=== PATIENT | male | born 1975 | race Caucasian/White ===

== ENCOUNTER 2021-02-16 14:32 | Emergency (ER) | payer OTHER ==
[~2021-02-16] VITALS: Ht 172.7 cm; Wt 95.5 kg
[2021-02-16] MEDS ORDERED: NORCO 325 MG-51 TAB PO (15:44)
[2021-02-16 16:00] VITALS: BP 138/64; PULSE 78; TEMP 97.5
== END 2021-02-16 16:04 | disposition home or self-care (01) ==
LOC: COL.ER 14:32
DX: S83.92XA Sprain of unspecified site of left knee, initial encounter (principal); R22.42 Localized swelling, mass and lump, left lower limb; I10 Essential (primary) hypertension; X58.XXXA Exposure to other specified factors, initial encounter

== ENCOUNTER 2022-02-13 19:34 | Emergency (ER) | payer OTHER ==
[~2022-02-13] VITALS: Ht 172.7 cm; Wt 90.9 kg
[~2022-02-13 19:34] MED LIST: NORCO 325 MG-51 TAB PO
[2022-02-13 19:37] VITALS: TEMP 98.9
[2022-02-13 20:38] LABS: BASO % 0.4 % (0.0-2.0); EOS % 0.1 % (0.0-4.0); GRAN # 9.5 K/mm3 (1.4-6.5); GRAN % 88.7 % (42.2-75.2); HEMATOCRIT 40.7 % (42.0-52.0); HEMOGLOBIN 13.7 g/dl (13.5-18.0); LYMPH # 0.6 K/mm3 (1.2-3.4); LYMPH % 5.7 % (20.0-51.0); MEAN CELL VOLUME 87 fl (80.0-100.0); MEAN CORPUSCULAR HEMOGLOBIN 29 pg (27-31); MEAN CORPUSCULAR HGB CONC 34 g/dl (33.0-37.0); MEAN PLATELET VOLUME 9.5 fl (7.4-10.4); MONO # 0.5 K/mm3 (0.1-0.6); MONO % 4.6 % (1.7-9.3); PLATELET COUNT 188 K/mm3 (130-400); REDCELL DISTRIBUTION WIDTH-CV 12.8 % (11.5-14.5)
[2022-02-13 20:52] LABS: ALBUMIN 3.4 gm/dL (3.5-5.0); BILIRUBIN,TOTAL 0.5 mg/dL (0.2-1.2); CALCIUM 8.9 mg/dL (8.4-10.2); CREATININE, serum 1.61 mg/dL (0.72-1.25); POTASSIUM 4.3 mmol/L (3.5-4.5); TOTAL PROTEIN 6.8 gm/dL (6.2-8.1)
[2022-02-13 22:37] VITALS: BP 124/80; PULSE 80
[2022-02-13] MEDS ORDERED: PERCOCET 325 MG1 TA2 PO (23:19)
== END 2022-02-13 22:37 | disposition home or self-care (01) ==
LOC: COL.ER 19:34
PROVIDERS: Nurse Practitioner
DX: M76.61 Achilles tendinitis, right leg (principal)
CPT/HCPCS: J2270; J2405; J3010; J7030

== ENCOUNTER 2022-11-08 17:59 | Inpatient (IN) | payer OTHER ==
[~2022-11-08] VITALS: Ht 172.7 cm; Wt 92.8 kg
[~2022-11-08 17:59] MED LIST changes: +PERCOCET 325 MG1 TA2 PO
[2022-11-08] MEDS ORDERED: ZESTRIL40 MG PO (19:58)
[2022-11-08] MEDS ORDERED: CELEBREX400 MG PO (19:58)
[2022-11-08] MEDS ORDERED: NEURONTIN300 MG/CAP PO (19:58)
[2022-11-08] MEDS ORDERED: ZITHROMAX Z PA250 MG PO (19:59)
[2022-11-08] MEDS ORDERED: GOOD SENSE TUS120 ML PO (20:05)
[2022-11-08 20:25] VITALS: BP 101/74; PULSE 88; TEMP 97.8
[2022-11-08] MEDS ORDERED: AMBIEN 10MG10 MG PO (22:05)
[2022-11-08] MEDS ORDERED: PROTONIX 40MG T40 MG PO (22:06)
[2022-11-08] MEDS ORDERED: MUCINEX DM 60 M1 TER PO (22:09)
[2022-11-08 22:33] LABS: BASO # 0.1 K/mm3 (0.0-0.2); BASO % 0.5 % (0.0-2.0); EOS # 0.1 K/mm3 (0.0-0.7); EOS % 0.8 % (0.0-4.0); GRAN # 11.9 K/mm3 (1.4-6.5); HEMATOCRIT 39.5 % (42.0-52.0); HEMOGLOBIN 13.4 g/dl (13.5-18.0); LYMPH # 1.3 K/mm3 (1.2-3.4); LYMPH % 8.7 % (20.0-51.0); MEAN CELL VOLUME 88 fl (80.0-100.0); MEAN CORPUSCULAR HEMOGLOBIN 30 pg (27-31); MEAN CORPUSCULAR HGB CONC 34 g/dl (33.0-37.0); MEAN PLATELET VOLUME 9.6 fl (7.4-10.4); MONO % 6.7 % (1.7-9.3); PLATELET COUNT 239 K/mm3 (130-400); RED BLOOD COUNT 4.51 M/mm3 (4.20-5.60); REDCELL DISTRIBUTION WIDTH-CV 12.5 % (11.5-14.5)
[2022-11-08 22:56] LABS: BILIRUBIN,TOTAL 0.3 mg/dL (0.2-1.2); C-REACTIVE PROTEIN 11.57 mg/dL (0.00-0.50); CALCIUM 9.1 mg/dL (8.4-10.2); CREATININE, serum 2.17 mg/dL (0.72-1.25); POTASSIUM 5.3 mmol/L (3.5-4.5); TOTAL PROTEIN 6.8 gm/dL (6.2-8.1)
[2022-11-08 23:23] VITALS: BP 118/68; PULSE 75; TEMP 98.2
[2022-11-09] VITALS (13 sets, daily range): BP systolic 108–145; BP diastolic 66–96; PULSE 77–107; TEMP 98.2–100.9
--- NOTE | 2022-11-09 01:16 | NUR ---
Patient arrived to surgical unit around 1949, direct admission. Notified JOSE Ma. Reports pain to right knee, sweling and redness to area. Given extra pillows for support and elevation due to decreased ROM to knee. Peripheral IV started to right forearm. Started IV fluids per orders, as well as ABX. Given PRN Phenergan as requested prior to ABX due to history of having nausea with Vancomycin. Given PRN pain medications as requested. Covid/Inf/RSV all negative. Patient does have dry cough. Patient's potassium elevated. Given IV insulin and dextrose per orders. Patient voices no questions, needs, or concerns at this time. In bed with call light within reach.
[2022-11-09 04:36] LABS: CALCIUM 8.7 mg/dL (8.4-10.2); CREATININE, serum 1.8 mg/dL (0.72-1.25); POTASSIUM 4.6 mmol/L (3.5-4.5)
--- NOTE | 2022-11-09 06:04 | NUR ---
47 yo male admitted for further care and management of R knee pain with possible sepsis (?septic arthritis). ht 172.7 cm wt 92.8 kg SCr 1.8 with estimated CrCl ~50 ml/min half life 19.5 hours Plan: Patient received an initial loading dose of vancomycin 2000 mg x1 in the ED (21.6 mg/kg); will follow with a maintenance regimen of vancomycin 1500 mg q24h to target a goal trough of 15-20 mcg/ml. Will follow patient's renal function, micro data, and vancomycin levels as indicated to assess for any necessary changes to regimen. Thank you for this dosing consult.
--- NOTE | 2022-11-09 06:22 | NUR ---
Patient given PRN pain medication during the night as requested to right knee pain. Left foot with increased swelling and pain this morning as well. Denied wanting ice to sites. Pre op fluids hung. Consent for surgery and anesthesia signed and on the chart. remains at bedside. Voices no questions, needs, or concerns at this time. In bed with call light within reach. Voided 1200 mls of urine at 0600.
[2022-11-09 06:45] LABS: SQUAMOUS EPITHELIAL 0-2 /hpf (0-10); URINE BACTERIA None Seen /hpf (NONE SEEN)
[2022-11-09 06:47] LABS: COLLECTION METHOD CLEAN CATCH; URINE APPEARANCE Clear (CLEAR/HAZY); URINE COLOR Yellow (YELLOW); URINE GLUCOSE Negative (NEGATIVE); URINE PROTEIN(semi-quant) 2+ (NEGATIVE)
[2022-11-09 06:48] LABS: URINE BLOOD 1+ (NEGATIVE); URINE KETONE Negative (NEGATIVE); URINE NITRATE Negative (NEGATIVE); URINE UROBILINOGEN 0.2 E.U/dL (0.2-1.0)
--- NOTE | 2022-11-09 10:00 | NUR ---
Pt. returned from surgery. Dressing to rt. knee CDI. Shift assessment complete. IV to rt. forearm patent. Pt. reports pain at a 8 on pain scale, giving pain meds per orders. Pt. denies further needs, call light within reach.
[2022-11-09 12:47] LABS: PHOSPHOROUS 4.4 mg/dL (2.3-4.7); URIC ACID 10.4 mg/dL (3.5-7.2)
--- NOTE | 2022-11-09 14:48 | NUR ---
SW met with patient to complete intake. Patient states that he lives in [facility] with his Fallon Mukherjee [phone]. Patient provides he does not utilize DME, is independent with ADLs, and does not utilize HH services at this time. PCP is Dr. Londono, and pharmacy [facility]. Patient does not have anyone appointed as DPOA/HC. Patient states he plans to return to his home upon DC. SW will continue to follow. DC plan: home
[2022-11-09 18:33] LABS: CALCIUM 8.4 mg/dL (8.4-10.2); CREATININE, serum 1.77 mg/dL (0.72-1.25); POTASSIUM 4.6 mmol/L (3.5-4.5)
--- NOTE | 2022-11-10 00:26 | NUR ---
PATIENT IS AOX4 AND PLEASANT TO SPEAK WITH. HE IS CLEARLY IN SOME UPON ENTERING THE ROOM STATING THAT THE PAIN RANGES FROM A 7-10 IN HIS RIGHT KNEE. THE PAIN WORSENS WHEN ANYBODY TOUCHES HIS LEGS. HE ALSO HAS PAIN IN HIS BILATERAL FEET WITH NOTABLE SWELLING IN HIS LEFT FOOT. SCD'S NOT PLACED DUE TO PAIN. NEGATIVE HOMANS SIGN. THERE IS WARMTH NOTED TO HIS BILATERAL FEET. FOOT XRAY COMPLETED, AWAITING RESULTS. D5 WITH 1/2 NS CONTINUES AT 125ML/HR. GIVEN NIGHTLY MEDICATIONS. GIVEN NORCO 1X, TRAMADOL 1X, AMBIEN 1X, AND FENTANYL 2X. THIS NURSE NOTIFIED JACE BANEGAS REGARDING INCREASING PAIN. FENTANYL SWITCHED TO Q2H FROM Q3H. RIGHT FOREARM IV HAD SOME STREAKING PRESENT AND WAS DISCONTINUED. A NEW 20G PLACED IN THE BACK OF HIS RIGHT FOREARM AND FLUSHES WELL. PATIENT REFUSED AN ICE PACK TO HIS KNEE/FEET. SLIGHTLY FEBRILE AT THE BEGINNING OF SHIFT, CURRENTLY AFEBRILE. HE WILL HAVE A PICC PLACED ON FRIDAY PER PRIOR NOTES AND HAVE LONG-TERM ANTIBIOTICS. CALL LIGHT IN REACH. SPOUSE AT BEDSIDE. BED IN LOWEST POSITION.
--- NOTE | 2022-11-10 01:43 | NUR ---
Patient care, medication administration and nursing documentation occurred during a Daylight Savings Time Change.
[2022-11-10 04:03] VITALS: BP 127/90; PULSE 94; TEMP 98.4
--- NOTE | 2022-11-10 04:15 | NUR ---
PATIENT CONTINUES TO HAVE CONSISTENT 6-8/10 BLE PAIN, USUALLY HIS RIGHT KNEE AND/OR BILATERAL FEET CAUSING THE PAIN. VSS. GIVEN FENTANYL 4X THUS FAR. SPOUSE RESTING AT BEDSIDE. PATIENT IS AOX4 AND ALERT UPON ENTERING AROUND 0400. HE STATED THAT HE HAS SLEPT A GOOD MAJORITY OF THE NIGHT SO FAR AND THAT HIS PAIN HAS BEEN BETTER CONTROLLED TONIGHT. CALL LIGHT IN REACH. BED IN LOWEST POSITION.
[2022-11-10 06:53] LABS: BASO # 0.1 K/mm3 (0.0-0.2); BASO % 0.5 % (0.0-2.0); EOS # 0.1 K/mm3 (0.0-0.7); EOS % 0.8 % (0.0-4.0); GRAN # 12.8 K/mm3 (1.4-6.5); GRAN % 83.9 % (42.2-75.2); HEMATOCRIT 37.6 % (42.0-52.0); HEMOGLOBIN 11.8 g/dl (13.5-18.0); LYMPH # 0.9 K/mm3 (1.2-3.4); LYMPH % 5.8 % (20.0-51.0); MEAN CORPUSCULAR HEMOGLOBIN 29 pg (27-31); MEAN CORPUSCULAR HGB CONC 31 g/dl (33.0-37.0); MEAN PLATELET VOLUME 9.9 fl (7.4-10.4); MONO # 1.2 K/mm3 (0.1-0.6); MONO % 7.8 % (1.7-9.3); PLATELET COUNT 250 K/mm3 (130-400); RED BLOOD COUNT 4.03 M/mm3 (4.20-5.60); REDCELL DISTRIBUTION WIDTH-CV 12.6 % (11.5-14.5)
[2022-11-10 06:54] LABS: MEAN CELL VOLUME 93 fl (80.0-100.0)
[2022-11-10 07:12] LABS: C-REACTIVE PROTEIN 22.6 mg/dL (0.00-0.50); CALCIUM 8.5 mg/dL (8.4-10.2); CREATININE, serum 1.7 mg/dL (0.72-1.25); POTASSIUM 4.6 mmol/L (3.5-4.5)
[2022-11-10 07:35] VITALS: BP 155/98; PULSE 98; TEMP 99.7
--- NOTE | 2022-11-10 08:00 | NUR ---
Pt. sitting up in bed. Pt. is A&OX3, assessment complete. INT to rt. forearm patent. Pt. Continues to have pain at a 8 on pain scale. Gave pain meds per orders. Pt. denies further needs, call light within reach.
[2022-11-10 12:03] VITALS: BP 152/100; PULSE 111; TEMP 98.3
[2022-11-10 15:39] VITALS: BP 142/95; PULSE 99; TEMP 98.9
--- NOTE | 2022-11-10 19:00 | NUR ---
RECEIVED CHANGE OF SHIFT REPORT FROM DAY SHIFT RN.
[2022-11-10 19:57] VITALS: BP 153/95; PULSE 88; TEMP 99.6
[2022-11-10 23:44] VITALS: BP 154/88; PULSE 98; TEMP 98
[2022-11-11] VITALS (8 sets, daily range): BP systolic 110–137; BP diastolic 43–99; PULSE 54–89; TEMP 97.7–98.5
[2022-11-11 06:51] LABS: BASO # 0.1 K/mm3 (0.0-0.2); BASO % 0.5 % (0.0-2.0); EOS # 0.3 K/mm3 (0.0-0.7); EOS % 2.1 % (0.0-4.0); GRAN # 10.2 K/mm3 (1.4-6.5); GRAN % 80.7 % (42.2-75.2); HEMOGLOBIN 11.4 g/dl (13.5-18.0); LYMPH % 7.9 % (20.0-51.0); MEAN CELL VOLUME 91 fl (80.0-100.0); MEAN CORPUSCULAR HEMOGLOBIN 30 pg (27-31); MEAN CORPUSCULAR HGB CONC 33 g/dl (33.0-37.0); MEAN PLATELET VOLUME 9.9 fl (7.4-10.4); MONO % 7.8 % (1.7-9.3); PLATELET COUNT 258 K/mm3 (130-400); RED BLOOD COUNT 3.87 M/mm3 (4.20-5.60); REDCELL DISTRIBUTION WIDTH-CV 12.4 % (11.5-14.5)
[2022-11-11 06:52] LABS: HEMATOCRIT 35.1 % (42.0-52.0)
[2022-11-11 07:03] LABS: CALCIUM 9.5 mg/dL (8.4-10.2); CREATININE, serum 1.72 mg/dL (0.72-1.25); POTASSIUM 4.6 mmol/L (3.5-4.5)
--- NOTE | 2022-11-11 07:09 | NUR ---
CHANGE OF SHIFT REPORT GIVEN TO DAY SHIFT RNLEANA.
--- NOTE | 2022-11-11 07:33 | NUR ---
Received shift report from the night nurseKhloe RN
--- NOTE | 2022-11-11 10:34 | NUR ---
Patient resting in bed with right lower extremity elevated on a pillow. Deven wrap dressing dry and intact. Patient rated pain level 6/10. Patient also c/o pain at left foot and noted swollen at the area. Cap refill brisk on both extremities. See process intervention for notes.
--- NOTE | 2022-11-11 14:42 | NUR ---
Travel Occupational Therapist met with PAtient at bedside in the [facility] Surgical Unit to discuss diacharge planning. SW briefed Patient of the potential for IV antibiotics to be continues after discharge. Options were discussed and Patient stated that he will be prepared to make a decision when the perscription with frequency is established.
--- NOTE | 2022-11-11 16:24 | NUR ---
Patient reports of pain at right knee and left foot. [place] administered and will continue to monitor patient.
--- NOTE | 2022-11-11 18:43 | NUR ---
RECEIVED CHANGE OF SHIFT REPORT FROM DAY SHIFT RN.
--- NOTE | 2022-11-11 18:54 | NUR ---
Patient's spouse assisted with hygiene, bed linen changed. Patient resting in bed watching TV, family at the bedside. No needs at this time.
--- NOTE | 2022-11-12 01:33 | NUR ---
PATIENT AWAKE AND RESTING IN BED, ASLEEP IN RECLINER CHAIR AT BEDSIDE. PATIENT DENIES ANY NEEDS AT THIS TIME.
[2022-11-12 03:29] VITALS: BP 129/79; PULSE 79; TEMP 97.3
[2022-11-12 06:43] LABS: HEMOGLOBIN 10.7 g/dl (13.5-18.0); MEAN CELL VOLUME 88 fl (80.0-100.0); MEAN CORPUSCULAR HEMOGLOBIN 30 pg (27-31); MEAN CORPUSCULAR HGB CONC 34 g/dl (33.0-37.0); MEAN PLATELET VOLUME 9.6 fl (7.4-10.4); PLATELET COUNT 251 K/mm3 (130-400); RED BLOOD COUNT 3.56 M/mm3 (4.20-5.60); REDCELL DISTRIBUTION WIDTH-CV 11.9 % (11.5-14.5)
[2022-11-12 06:45] LABS: HEMATOCRIT 31.2 % (42.0-52.0)
--- NOTE | 2022-11-12 06:54 | NUR ---
CHANGE OF SHIFT REPORT GIVEN TO DAY SHIFT RNAKIRA.
[2022-11-12 06:55] LABS: CALCIUM 9.2 mg/dL (8.4-10.2); CREATININE, serum 1.48 mg/dL (0.72-1.25); POTASSIUM 4.5 mmol/L (3.5-4.5)
[2022-11-12 07:54] LABS: BAND 5 % (0-10); LYMPHOCYTE 4 % (20.0-51.0); METAMYELOCYTE 1 % (0-0); NEUTROPHILS 85 % (42.0-75.2); PLATELET ESTIMATE NORMAL (NORMAL)
[2022-11-12 08:00] VITALS: BP 146/92; PULSE 86; TEMP 98.2
--- NOTE | 2022-11-12 08:00 | NUR ---
Pt. sitting up in bed. Pt. is A&OX3, assessment complete. PICC to rt. upper arm patent. Pt. denies pain. Bandaids to rt. knee scope site. Pt. denies further needs, call light within reach.
[2022-11-12] MEDS ORDERED: ROCEPHIN 2GM VIAL21 IJ (09:58)
[2022-11-12] MEDS ORDERED: VANCO 1.51.5 GM/250 IV (09:58)
[2022-11-12] MEDS ORDERED: COLCRYS0.6 MG PO (10:04)
[2022-11-12] MEDS ORDERED: ZYLOPRIM 100MG100 MG PO ×2 (10:05→10:16)
[2022-11-12] MEDS ORDERED: PREDNISONE10 MG PO (10:11)
[2022-11-12 12:00] VITALS: BP 140/81; PULSE 73; TEMP 98
--- NOTE | 2022-11-12 15:27 | NUR ---
Supervisor Stone attended clinical rounds with the team and patient may discharge today with IV antibiotics. ADILIA met with patient and his , Fallon to review discharge plan. Patient is agreeable to whatever [employer] company works with and is okay with SW sending it to [facility]. Patient would like to have at least one Home Health visit for education and again, wants whatever agency can use his . ADILIA contacted Cyndi at [facility] and faxed referral with orders. Cyndi received referral and advised their finance team is working for [employer]. ADILIA also contacted Zoraida at [facility] and faxed referral. ADILIA notified by NOEL Henderson that patient to stay one more day per Ortho as Infectious Disease will return tomorrow and provide recommendations.
[2022-11-12 15:58] VITALS: BP 138/81; PULSE 83; TEMP 98.2
[2022-11-12 20:28] VITALS: BP 137/79; PULSE 80; TEMP 98
[2022-11-12 23:49] VITALS: BP 142/83; PULSE 71; TEMP 98.2
[2022-11-13 03:57] VITALS: BP 136/73; PULSE 73; TEMP 98.3
--- NOTE | 2022-11-13 06:15 | NUR ---
pain controlled with po pain meds, pt reports getting very little sleep this shift, even after ambien given. hopes to go home today.
[2022-11-13 06:40] LABS: BASO % 0.1 % (0.0-2.0); GRAN # 15.7 K/mm3 (1.4-6.5); GRAN % 89.1 % (42.2-75.2); HEMOGLOBIN 10.3 g/dl (13.5-18.0); LYMPH # 0.9 K/mm3 (1.2-3.4); MEAN CELL VOLUME 90 fl (80.0-100.0); MEAN CORPUSCULAR HEMOGLOBIN 29 pg (27-31); MEAN CORPUSCULAR HGB CONC 33 g/dl (33.0-37.0); MEAN PLATELET VOLUME 10.1 fl (7.4-10.4); MONO # 0.8 K/mm3 (0.1-0.6); MONO % 4.8 % (1.7-9.3); PLATELET COUNT 331 K/mm3 (130-400); RED BLOOD COUNT 3.52 M/mm3 (4.20-5.60); REDCELL DISTRIBUTION WIDTH-CV 12.4 % (11.5-14.5)
[2022-11-13 06:41] LABS: HEMATOCRIT 31.7 % (42.0-52.0)
[2022-11-13 06:56] LABS: CALCIUM 9.2 mg/dL (8.4-10.2); CREATININE, serum 1.26 mg/dL (0.72-1.25); POTASSIUM 4.4 mmol/L (3.5-4.5)
[2022-11-13 07:33] VITALS: BP 152/89; PULSE 71; TEMP 97.4
--- NOTE | 2022-11-13 09:30 | NUR ---
Pt. sitting up in bed. Pt. is a&OX3, assessment complete. PICC to rt. upper arm patent. Pt. reports pain at a 5 on pain scale, gave pain meds. Pt. denies further needs, call light within reach.
[2022-11-13] MEDS ORDERED: CLEOCIN HCL300 MG PO ×2 (11:11→11:56)
[2022-11-13 11:18] VITALS: BP 161/96; PULSE 69; TEMP 97.5
[2022-11-13] MEDS ORDERED: ROCEPHIN 2GM VIAL21 IV ×2 (11:53→11:55)
--- NOTE | 2022-11-13 15:45 | NUR ---
Pt. ready for discharge. Pt. and reviewed and given discharge paperwork. Reviewed PICC line care, Pt. and voice understanding. Pt. denies further needs. Pt. dressed and escorted out.
--- NOTE | 2022-11-13 16:24 | NUR ---
Fabric Worker faxed final reccomendations and discharge information to Cyndi at [facility]. Once daily Ceftriaxone, 2gm. Cyndi at [facility] advised she spoke with patient about out of pocket cost and they are agreeable. Cyndi also advised the meds should be delivered tonight and that the pharmacy will call the patient with delivery time. ADILIA spoke with Zoraida at [facility] who advised they can accept and have nursing visit tomorrow. ADILIA followed up with [facility] intake and confirmed they have discharge orders and would call the patient to schedule. ADILIA collaborated with bedside RN who advised time of infusion tomorrow would be flexible. ADILIA met with patient to review discharge plan and advised [facility] could accept. Patient agreeable to nursing visits, but not interested in PT/OT. Patient was advised [facility] would call with time. ADILIA left a message with patient's with contact information in case any issues arise tomorrow.
== END 2022-11-13 15:45 | disposition home health service (06) | DRG 486 ==
LOC: MEDICAL 17:59 → SURG 19:47
PROVIDERS: Nurse Practitioner Family; Orthopaedic Surgery; Physician Assistant; Registered Nurse; ADMIT Student in an Organized Health Care Education/Training Program
PROC: 0S9C3ZX Drainage of Right Knee Joint, Percutaneous Approach, Diagnostic (ICD-10-PCS; 2022-11-09)
PROC: 0SBC4ZZ Excision of Right Knee Joint, Percutaneous Endoscopic Approach (ICD-10-PCS; principal; 2022-11-09 08:00)
PROC: 02HV33Z Insertion of Infusion Device into Superior Vena Cava, Percutaneous Approach (ICD-10-PCS; 2022-11-11)
DX: M00.9 Pyogenic arthritis, unspecified (principal); E87.20 Acidosis, unspecified; N17.9 Acute kidney failure, unspecified; I10 Essential (primary) hypertension; M10.9 Gout, unspecified; M11.9 Crystal arthropathy, unspecified; M19.90 Unspecified osteoarthritis, unspecified site; G62.9 Polyneuropathy, unspecified; E87.5 Hyperkalemia; R73.9 Hyperglycemia, unspecified; D72.829 Elevated white blood cell count, unspecified; G47.00 Insomnia, unspecified; E78.5 Hyperlipidemia, unspecified; Z20.822 Contact with and (suspected) exposure to COVID-19; Z96.652 Presence of left artificial knee joint; Z88.5 Allergy status to narcotic agent; N18.9 Chronic kidney disease, unspecified
CPT/HCPCS: A9270; C1751; J0692; J1170; J1815; J2250; J2405; J2550; J2704; J2920; J2930; J3010; J3370; J7030; J7040; J7050; J7120; J7512

== ENCOUNTER 2022-11-20 19:44 | Emergency (ER) | payer OTHER ==
[~2022-11-20] VITALS: Ht 172.7 cm; Wt 93.6 kg
[2022-11-20 19:52] VITALS: TEMP 97.5
[2022-11-21 03:25] VITALS: BP 150/89; PULSE 90
== END 2022-11-21 03:25 | disposition home or self-care (01) ==
LOC: COL.ER 19:44
DX: M25.061 Hemarthrosis, right knee (principal); I10 Essential (primary) hypertension; Z79.899 Other long term (current) drug therapy; Z28.310 Unvaccinated for COVID-19
CPT/HCPCS: J0360; J1170; J1885; J3010; J3360

== ENCOUNTER → 2022-11-20 | Outpatient (REF) | payer OTHER ==
[~2022-11-20] MED LIST changes: +AMBIEN 10MG10 MG PO; +CELEBREX400 MG PO; +CLEOCIN HCL300 MG PO; +COLCRYS0.6 MG PO; +GOOD SENSE TUS120 ML PO; +MUCINEX DM 60 M1 TER PO; +NEURONTIN300 MG/CAP PO; +PREDNISONE10 MG PO; +PROTONIX 40MG T40 MG PO; +ROCEPHIN 2GM VIAL21 IJ; +ROCEPHIN 2GM VIAL21 IV; +VANCO 1.51.5 GM/250 IV; +ZESTRIL40 MG PO; +ZITHROMAX Z PA250 MG PO; +ZYLOPRIM 100MG100 MG PO
[2022-11-20 14:57] LABS: SYNOVIAL FLUID RBC 1559000 /mm3 (0-0)
[2022-11-20 16:24] LABS: SYNOVIAL FLUID WBC 7420 /mm3 (200-600)
[2022-11-20 16:27] LABS: SYNOVIAL FLUID APPEARANCE TURBID; SYNOVIAL FLUID COLOR RED
== END ==
LOC: ZCOL.LAB 14:17
PROVIDERS: Orthopaedic Surgery
DX: M25.561 Pain in right knee (principal)

== ENCOUNTER 2022-11-21 10:41 | Outpatient (CLI) | payer OTHER ==
[~2022-11-21] VITALS: Ht 172.7 cm; Wt 96.6 kg
[2022-11-21 10:52] VITALS: BP 168/104; PULSE 92; TEMP 98
--- NOTE | 2022-11-21 11:31 | NUR ---
Dressing remains clean, dry and intact. Pt remained in bed for 30 mins following PICC DC. He transfer to with standby assist as rt leg is in knee immobilizer. Respirations remain even and unlabored. states she does not need help out, and she assists pt out of dept by wheelchair.
== END 2022-11-21 11:31 | disposition home or self-care (01) ==
LOC: EUO 10:41
DX: M25.561 Pain in right knee (principal)